=== PATIENT | male | born 1955 | race Caucasian/White ===

== ENCOUNTER 2017-10-13 14:19 | Emergency (ER) | payer SELFPAY ==
--- NOTE | 2017-10-13 15:15 | RAD ---
LEFT TIBIA AND FIBULA TWO VIEWS: HISTORY: A 62-year-old male with left lower leg injury following a fall off a ladder 3 days ago with pain, par ticularly laterally. FINDINGS: Arthrosis and degenerative changes are noted of the ankle joint and less marked changes of the knee j oint. No evidence for acute fracture or dislocation. 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 POS: YESEINA
== END 2017-10-13 15:08 | disposition home or self-care (01) ==
LOC: NAV ERS 14:19
DX: S93.402A Sprain of unspecified ligament of left ankle, initial encounter (principal); I25.10 Atherosclerotic heart disease of native coronary artery without angina pectoris; I10 Essential (primary) hypertension; F41.9 Anxiety disorder, unspecified; F17.220 Nicotine dependence, chewing tobacco, uncomplicated; W11.XXXA Fall on and from ladder, initial encounter

== ENCOUNTER 2018-03-06 11:57 | Emergency (ER) | payer SELFPAY ==
[2018-03-06] MEDS ORDERED: Ibuprofen 800 MG TAB ONE (12:28)
== END 2018-03-06 12:35 | disposition home or self-care (01) ==
LOC: NAV ERS 11:57
DX: H60.21 Malignant otitis externa, right ear (principal); H61.21 Impacted cerumen, right ear; I25.10 Atherosclerotic heart disease of native coronary artery without angina pectoris; I10 Essential (primary) hypertension; E78.00 Pure hypercholesterolemia, unspecified; F41.9 Anxiety disorder, unspecified; F17.220 Nicotine dependence, chewing tobacco, uncomplicated
CPT/HCPCS: 99282

== ENCOUNTER 2018-08-08 11:23 | Emergency (ER) | payer MEDICARE, SELFPAY ==
[2018-08-08] MEDS ORDERED: HYDROcodone/Acetaminophen 5/325 mg Tablet ONE (11:55)
--- NOTE | 2018-08-08 12:59 | RAD ---
RIGHT ANKLE RADIOGRAPHS THREE VIEWS: Date: 08-08-18 Provided Clinical History: Right ankle pain. FINDINGS: Multiple lucencies extend through the anterior and posterior aspect of the calcaneus on the lateral v iew, compatible with fracture. No additional fracture is evident. Alignment appears anatomic. Joint s paces appear preserved. IMPRESSION: Comminuted nondisplaced calcaneal fracture. Consider CT. POS: YESENIA
--- NOTE | 2018-08-08 13:36 | CT ---
CT OF THE RIGHT ANKLE: DATE: 08/08/2018. PROVIDED CLINICAL HISTORY: Calcaneal fracture. FINDINGS: There is an extensively comminuted fracture of the calcaneus, involving both the anterior and posteri or aspects of the calcaneus. This is intraarticular at the posterior subtalar joint with associated intraarticular gap and intraarticular step off. There is displacement of the sustentaculum sharon frag ment medially. No additional fracture is evident. No apparent entrapment of the peroneal tendons. Vascular calcifications are seen. IMPRESSION: Extensively comminuted fracture of the calcaneus with intraarticular extension to the posterior subta lar joint. Orthopedic consultation is recommended. POS: REYNALDO
== END 2018-08-08 13:33 | disposition home or self-care (01) ==
LOC: NAV ERS 11:23
DX: S92.061A Displaced intraarticular fracture of right calcaneus, initial encounter for closed fracture (principal); S92.021A Displaced fracture of anterior process of right calcaneus, initial encounter for closed fracture; I25.10 Atherosclerotic heart disease of native coronary artery without angina pectoris; I10 Essential (primary) hypertension; E78.00 Pure hypercholesterolemia, unspecified; F41.9 Anxiety disorder, unspecified; F17.220 Nicotine dependence, chewing tobacco, uncomplicated; Z79.899 Other long term (current) drug therapy; W19.XXXA Unspecified fall, initial encounter
CPT/HCPCS: 29515; 96372; J2270